=== PATIENT | female | born 1950 | race Caucasian/White ===

== ENCOUNTER → 2018-04-03 11:08 | Outpatient (POV) | payer OTHER, SELFPAY ==
[2018-04-03 11:33] VITALS: BP 114/49; PULSE 73; RESP 18; O2SAT 91
--- NOTE | 2018-04-03 11:55 | HMH.PMCON ---
Assessment and Plan (1) Degenerative disc disease Current visit: Yes Status: Resolved Qualifiers: Spinal region: lumbar Qualified Code(s): M51.36 - Other intervertebral disc degeneration, lumbar region Category: Medical - Assessment and plan all Dx Assessment and Plan for all problems:: We will decrease the patient's pump to an infusion of 2.3 mg a day. We will follow-up with her at her next intrathecal pain pump refill. Patient's been instructed to call the office if she has any issues prior to her next appointment. This note was dictated using voice recognition software and may contain errors or omissions HPI - Data of Consult Consult date: 04/03/18 Requesting Physician: Merced Julio APRN Primary Care Provider: Darshan Parmar - Consult Narrative Reason for consult: Management of intrathecal pain pump History of present illness: Ms. Erickson is a 67 year old female who presents today for consultation. Patient has been a patient in [facility] where we have been managing her intrathecal Dilaudid/bupivacaine pump. Patient's currently on an intrathecal dose of 2.4 mg a day of Dilaudid and 1.2 mg a day of bupivacaine. Patient had been decrease her medication out of her pump however she was unable to decrease of 20%. Patient rates her pain today a 6 out of 10. Patient is utilizing Voltaren gel to help with the pain. Patient is coming off of her Keppra along with her gabapentin. She is also decreasing her primidone patient would like to start decreasing her pain pump. Patient is asking if we would be able to put her on narcotics I discussed with her that we would talk to Dr. Yu about this however it is our policy not to do so. Would like a small decrease today. We will decrease her 4%. CC: Merced Julio APRN [facility] History I have reviewed the patient's past medical history: Yes Medical History: Reports:: Deep Vein Thrombosis Denies:: Cancer, Diabetes Mellitus Type 1, Diabetes Mellitus Type 2, MRSA Other Medical History: Reports: Arthritis, Fibromyalgia Laterality Cases: Left: Carpal Tunnel Release, Total Knee Replacement, Other Other Surgeries: Yes: Cholecystectomy, Other (RIGHT ULNAR NERVE RELEASE, NECK, PAIN PUMP) Amputation: No Fractures: No - *Social History Alcohol Intake: never Occupational Status: other - Psychiatric History Expresses thoughts of harming self/others: None Suicide Plan Description: No Plan Review of Systems - Review of Systems ROS General: no recent weight change, no fever, no sleep disturbances Respiratory: no cough, no shortness of air, no recurring pulmonary infections Cardiovascular/Peripheral Vascular: No chest pain, No palpitations, no edema, no shortness of breath. Gastrointestinal: no incontinence, normal bowel movements reported Genitourinary: no incontinence Musculoskeletal: Back pain Psychiatric: normal mood/ affect, Neurological: [denies weakness in extremities], [denies balance issues] Meds Home Medications Medication Instructions Recorded Confirmed Type Butalb/Acetaminophen/Caffeine 1 each PO BIDP PRN 04/03/18 04/03/18 History [Rchscg-[id number] [id number]] Diclofenac Sodium [Diclofenac Sod 2 gm TOPICAL TID 04/03/18 04/03/18 History 100gm Topical Gel] Gabapentin [Gabapentin 100mg Cap] 100 mg PO DAILY 04/03/18 04/03/18 History Iron Polysaccharide Complex 150 mg PO DAILY 04/03/18 04/03/18 History [Poly-Iron] Mirabegron [Myrbetriq] 25 mg PO DAILY 04/03/18 04/03/18 History Omeprazole [Omeprazole 40mg 40 mg PO DAILY 04/03/18 04/03/18 History Capsule] Primidone [Mysoline] 250 mg PO BID 04/03/18 04/03/18 History Promethazine HCl [Phenergan 25mg 25 mg PO DAILY PRN 04/03/18 04/03/18 History tab] diazePAM [Valium] 10 mg PO TID 04/03/18 04/03/18 History Allergies Allergy/AdvReac Type Severity Reaction Status Date / Time butorphanol [From Stadol] Allergy Verified 04/03/18 11:43 nalbuphine [From Nubain]
--- NOTE | 2018-04-03 12:02 | P.CONS_ITS ---
Assessment and Plan (1) Degenerative disc disease Current visit: Yes Status: Resolved Qualifiers: Spinal region: lumbar Qualified Code(s): M51.36 - Other intervertebral disc degeneration, lumbar region Category: Medical - Assessment and plan all Dx Assessment and Plan for all problems:: We will decrease the patient's pump to an infusion of 2.3 mg a day. We will follow-up with her at her next intrathecal pain pump refill. Patient's been instructed to call the office if she has any issues prior to her next appointment. This note was dictated using voice recognition software and may contain errors or omissions HPI - Data of Consult Consult date: 04/03/18 Requesting Physician: Merced Julio APRN Primary Care Provider: Darshan Parmar - Consult Narrative Reason for consult: Management of intrathecal pain pump History of present illness: Ms. Erickson is a 67 year old female who presents today for consultation. Patient has been a patient in [facility] where we have been managing her intrathecal Dilaudid/bupivacaine pump. Patient's currently on an intrathecal dose of 2.4 mg a day of Dilaudid and 1.2 mg a day of bupivacaine. Patient had been decrease her medication out of her pump however she was unable to decrease of 20%. Patient rates her pain today a 6 out of 10. Patient is utilizing Voltaren gel to help with the pain. Patient is coming off of her Keppra along with her ga bapentin. She is also decreasing her primidone patient would like to start decreasing her pain pump. Patient is asking if we would be able to put her on narcotics I discussed with her that we would talk to Dr. Yu about this however it is our policy not to do so. Would like a small decrease today. We will decrease her 4%. CC: Merced Julio APRN [facility] History I have reviewed the patient's past medical history: Yes Medical History: Reports:: Deep Vein Thrombosis Denies:: Cancer, Diabetes Mellitus Type 1, Diabetes Mellitus Type 2, MRSA Other Medical History: Reports: Arthritis, Fibromyalgia Laterality Cases: Left: Carpal Tunnel Release, Total Knee Replacement, Other Other Surgeries: Yes: Cholecystectomy, Other (RIGHT ULNAR NERVE RELEASE, NECK, PAIN PUMP) Amputation: No Fractures: No - *Social History Alcohol Intake: never Occupational Status: other - Psychiatric History Expresses thoughts of harming self/others: None Suicide Plan Description: No Plan Review of Systems - Review of Systems ROS General: no recent weight change, no fever, no sleep disturbances Respiratory: no cough, no shortness of air, no recurring pulmonary infections Cardiovascular/Peripheral Vascular: No chest pain, No palpitations, no edema, no shortness of breath. Gastrointestinal: no incontinence, normal bowel movements reported Genitourinary: no incontinence Musculoskeletal: Back pain Psychiatric: normal mood/ affect, Neurological: [denies weakness in extremities], [denies balance issues] Meds Home Medications Medication Instructions Recorded Confirmed Type Butalb/Acetaminophen/Caffeine 1 each PO BIDP PRN 04/03/18 04/03/18 History [[id number]-Iwyv 50-300-40] Diclofenac Sodium [Diclofenac Sod 2 gm TOPICAL TID 04/03/18 04/03/18 History 100gm Topical Gel] Gabapentin [Gabapentin 100mg Cap] 100 mg PO DAILY 04/03/18 04/03/18 History Iron Polysaccharide Complex 150 mg PO DAILY 04/03/18 04/03/18 History [Poly-Iron] Mirabegron [Myrbetr
== END ==
PROVIDERS: PCP Family Medicine; Visit Provider Clinical Nurse Specialist Family Health
DX: M51.36 Other intervertebral disc degeneration, lumbar region (principal)
CPT/HCPCS: 62368

== ENCOUNTER → 2018-05-16 09:03 | Outpatient (POV) | payer OTHER, SELFPAY ==
[2018-05-16 09:26] VITALS: BP 135/58; PULSE 70; RESP 18; O2SAT 98; BMI 22.8
--- NOTE | 2018-05-16 12:31 | P.CONS_ITS ---
[facility] Pain Management SOAP Note Subjective:: Patient is a pleasant 68-year-old white female who is very tearful today. Patient states she is in terrible pain mostly migraines and headaches. He is also having radiation into her left hand. Patient has been slowly decreasing her medication. Patient has been completely weaned off her Keppra and is now only on gabapentin 100 mg a day. She is also cutting back her Valium. Patient is on a intrathecal Dilaudid/bupivacaine pump going at 2.3 mg we have not made any adjustments to this recently. Patient would like to continue to keep cutting back on this in order to get off of the medication. Patient has some concerns in regards to insurance and financing in the future. ROS General: no recent weight change, no fever, no sleep disturbances Respiratory: no cough, no shortness of air, no recurring pulmonary infections Cardiovascular/Peripheral Vascular: No chest pain, No palpitations, no edema, no shortness of breath. Gastrointestinal: no incontinence, normal bowel movements reported Genitourinary: no incontinence Musculoskeletal: Headaches, back pain, neck pain Psychiatric: normal mood/ affect Neurological: [denies weakness in extremities], [denies balance issues] Objective:: Physical Exam General: Alert and oriented x3, no acute distress, pleasant and cooperative, [on room air] Lungs: Resps E/U, Symmetrical chest expansion, Eyes: PERRL Musculoskeletal: Flexion and extension of cervical spine somewhat guarded secondary to pain, deep tendon reflexes normal, strength in upper and lower extremities [5/5], [abnormal gait noted] Neurological: speech clear, regional guide equal, no gross sensory deficits Assessment:: Degenerative disc disease cervical spine with cervical radiculopathy, postlaminectomy syndrome, degenerative disc disease lumbar spine Plan:: Patient has had epidurals in the past. Patient states that she does not remember them being helpful. Patient and I discussed about our plan of care. We will not increase her pain pump backup. I believe that this will be unhe lpful to current pain symptoms. We will send her for an MRI to determine any changes in her neck pathology. We will also call in a Medrol Dosepak for the patient. If she does not get relief from this we will plan a C5-C6 cervical epidural for her. This note was dictated using voice recognition software and may contain errors or omissions
--- NOTE | 2018-05-24 15:22 | PC.PHONENOTE ---
Edwina Erickson called the office due to increased pain she was having. The patient were given the options by staff to make an appointment to come in to be evaluated, go to family doctor, or go to the emergency room. Pt went to family doctor. Dr. Darshan Parmar prescribed her Loratab ,1Q4H PRN with quantity 18.
== END ==
PROVIDERS: PCP Family Medicine; Visit Provider Clinical Nurse Specialist Family Health
DX: M50.10 Cervical disc disorder with radiculopathy, unspecified cervical region (principal); M96.1 Postlaminectomy syndrome, not elsewhere classified; M51.36 Other intervertebral disc degeneration, lumbar region
CPT/HCPCS: 62368; 99213

== ENCOUNTER → 2018-05-26 08:39 | Outpatient (POV) | payer OTHER, SELFPAY ==
[2018-05-26 09:01] VITALS: BP 123/47; PULSE 84; RESP 18; O2SAT 98; BMI 21.6
--- NOTE | 2018-05-26 09:56 | HMH.PMPROC ---
- Procedure Date: 05/26/18 Time: 09:56 Anesthesiologist:: Ladarius Yu MD Complications:: None Pre-procedure Diagnosis:: Degenerative disc disease of the cervical spine with postlaminectomy syndrome of the cervical spine and cervical radiculopathy symptoms with increasing neck pain Degenerative disease of lumbar spine with lumbar radiculopathy symptoms and previous compression fracture Post-procedure Diagnosis:: Same Indications for Procedure:: This patient is a pleasant 68-year-old white female who we are treating for neck pain with post lobectomy syndrome of the cervical spine and cervical radiculopathy symptoms along with low back pain with lumbar radiculopathy symptoms. She has increasing neck pain. Her pump was decreased previously as it was not giving her much relief. She had severe pain and ended up going to her primary care physician. Her primary care physician did give her 3 days worth of hydrocodone 5 mg. She is also on diazepam 10 mg 3 times a day however she says she is weaning herself off of this. We will continue to wean her pump however I will change her to flex dosing as she has benefited from boluses in the past. She got 0.25 mg bolus which gave her significant relief. We will give her 0.25 mg boluses every 4 hours with a low basal rate decreasing her intrathecal total daily dose to 1.9 mg/day of intrathecal Dilaudid/bupivacaine. She also has a MRI of her brain which indicated possible autoimmune disease. She is afraid she has lupus. We will send her to a senior software development engineer to be evaluated. We will also follow-up on MRI of the cervical spine. Procedure Details:: Adjustment of intrathecal pain pump Informed consent was obtained and the risk and benefits of the procedure was explained to the. Patient was taken to the procedure room. Pump was interrogated. Intrathecal Dilaudid/bupivacaine infusion was changed to flex dosing of 0.25 mg boluses every 4 hours with low basal rate with total daily dose of 1.97 mg/day of intrathecal Dilaudid/bupivacaine. Patient tolerated the procedure well with no complications. Plan and Disposition:: We will continue to wean her pump however I will change her to flex dosing as she has benefited from boluses in the past. She got 0.25 mg bolus which gave her significant relief. We will give her 0.25 mg boluses every 4 hours with a low basal rate decreasing her intrathecal total daily dose to 1.97 mg/day of intrathecal Dilaudid/bupivacaine. She also has a MRI of her brain which indicated possible autoimmune disease. She is afraid she has lupus. We will send her to a senior software development engineer to be evaluated. We will also follow-up on MRI of the cervical spine. We will also continue to monitor her Karsten. If she continues to receive diazepam at 10 mg 3 times a day we will further reduce her intrathecal infusion and wean her completely off. She needs to wean off of her diazepam in order for us to continue treating her with intrathecal narcotics. Also she does not need to get hydrocodone on top of her pump medication. We had a mitchel discussion about this violation of her contract.
== END ==
PROVIDERS: PCP Family Medicine; Visit Provider Anesthesiology
DX: M50.10 Cervical disc disorder with radiculopathy, unspecified cervical region (principal); M96.1 Postlaminectomy syndrome, not elsewhere classified; M51.16 Intervertebral disc disorders with radiculopathy, lumbar region; Z87.311 Personal history of (healed) other pathological fracture
CPT/HCPCS: 62368

== ENCOUNTER → 2018-06-19 13:40 | Outpatient (POV) | payer OTHER, SELFPAY ==
[2018-06-19 14:08] VITALS: BP 113/47; PULSE 74; RESP 18; O2SAT 98; BMI 21.4
--- NOTE | 2018-06-19 15:13 | HMH.PAINSOAP ---
[facility] Pain Management SOAP Note Subjective:: Patient is a pleasant 68-year-old white female who presents today to discuss her myriad of issues. Patient currently has an intrathecal pain pump that is being decreased due to other medication she is taking. She rates her pain a 9 out of 10. Patient states she is extremely tender over her bilateral occipital's. She is also having migraines along with bug-like sensation. I believe that an occipital nerve block would be beneficial for her. Patient is also taken a fall recently and has had extreme neck pain radiating down to her left arm and affecting the last 3 digits on her left hand. Patient is having some increased weakness in this area as well. I have some concerns in regards to her neck pathology. Patient has had surgery in the past I would like to determine that there has been no damage done to this area. We will send her for an MRI of her cervical spine. Patient also would like to discuss the flow [place] pain pump. I believe we need to get these procedures done prior to making this decision. ROS General: no recent weight change, no fever, no sleep disturbances Respiratory: no cough, no shortness of air, no recurring pulmonary infections Cardiovascular/Peripheral Vascular: No chest pain, No palpitations, no edema, no shortness of breath. Gastrointestinal: no incontinence, normal bowel movements reported Genitourinary: no incontinence Musculoskeletal: Neck pain, migraines Psychiatric: normal mood/ affect Neurological: Left arm weakness, [denies balance issues] Objective:: Physical Exam General: Alert and oriented x3, no acute distress, pleasant and cooperative, [on room air] Lungs: Resps E/U, Symmetrical chest expansion, Eyes: PERRL Musculoskeletal: Flexion and extension of cervical spine somewhat guarded secondary to pain, deep tendon reflexes normal, strength in upper and lower extremities [5/5], slightly antalgic gait noted Neurological: speech clear, machine feeder floorperson equal, no gross sensory deficits Assessment:: Occipital neuralgia, neck pain, postlaminectomy syndrome, arm pain Plan:: We will schedule MRI of the cervical spine to determine pathology. We will also set her up for occipital nerve blocks I believe that this would be beneficial for her. This note was dictated using voice recognition software and may contain errors or omissions
--- NOTE | 2018-06-19 15:18 | P.CONS_ITS ---
[facility] Pain Management SOAP Note Subjective:: Patient is a pleasant 68-year-old white female who presents today to discuss her myriad of issues. Patient currently has an intrathecal pain pump that is being decreased due to other medication she is taking. She rates her pain a 9 out of 10. Patient states she is extremely tender over her bilateral occipital's. She is also having migraines along with bug-like sensation. I believe that an occipital nerve block would be beneficial for her. Patient is also taken a fall recently and has had extreme neck pain radiating down to her left arm and affecting the last 3 digits on her left hand. Patient is having some increased weakness in this area as well. I have some concerns in regards to her neck pathology. Patient has had surgery in the past I would like to determine that there has been no damage done to this area. We will send her for an MRI of her cervical spine. Patient also would like to discuss the flow [place] pain pump. I believe we need to get these procedures done prior to making this decision. ROS General: no recent weight change, no fever, no sleep disturbances Respiratory: no cough, no shortness of air, no recurring pulmonary infections Cardiovascular/Peripheral Vascular: No chest pain, No palpitations, no edema, no shortness of breath. Gastrointestinal: no incontinence, normal bowel movements reported Genitourinary: no incontinence Musculoskeletal: Neck pain, migraines Psychiatric: normal mood/ affect Neurological: Left arm weakness, [denies balance issues] Objective:: Physical Exam General: Alert and oriented x3, no acute distress, pleasant and cooperative, [on room air] Lungs: Resps E/U, Symmetrical chest expansion, Eyes: PERRL Musculoskeletal: Flexion and extension of cervical spine somewhat guarded secondary to pain, deep tendon reflexes normal, strength in upper and lower extremities [5/5], slightly antalgic gait noted Neurological: speech clear, sample hand equal, no gross sensory deficits Assessment:: Occipital neuralgia, neck pain, postlaminectomy syndrome, arm pain Plan:: We will schedule MRI of the cervical spine to determine pathology. We will also set her up for occipital nerve blocks I believe that this would be beneficial for her. This note was dictated using voice recognition software and may contain errors or omissions
== END ==
PROVIDERS: PCP Family Medicine; Visit Provider Clinical Nurse Specialist Family Health
DX: M54.81 Occipital neuralgia (principal); M54.2 Cervicalgia; M96.1 Postlaminectomy syndrome, not elsewhere classified; M79.602 Pain in left arm
CPT/HCPCS: 99213

== ENCOUNTER → 2018-09-04 10:01 | Outpatient (POV) | payer OTHER, SELFPAY ==
[2018-09-04 10:38] VITALS: BP 122/55; PULSE 70; RESP 18; O2SAT 98; BMI 20.5
--- NOTE | 2018-09-04 11:27 | P.CONS_ITS ---
[facility] Pain Management SOAP Note Subjective:: Patient is a pleasant 68-year-old white female who presents today for follow-up after occipital nerve block. Patient states she did not have any relief of her symptoms and actually got worse. Since her last visit she is been seen by Dr. Michel who stated that if he did surgery she potentially could be worse and he was not interested in moving forward with that. Patient states most of her pain is in her head she states it is heavy feeling at all times. She rates her pain an 8 out of 10. Patient wants to discuss gabapentin today. Patient had been on gabapentin in the past however she is recently weaned herself off. We discussed starting her back on a low dose and she is interested in this. ROS General: no recent weight change, no fever, no sleep disturbances Respiratory: no cough, no shortness of air, no recurring pulmonary infections Cardiovascular/Peripheral Vascular: No chest pain, No palpitations, no edema, no shortness of breath. Gastrointestinal: no incontinence, normal bowel movements reported Genitourinary: no incontinence Musculoskeletal: Back pain, neck pain, headache Psychiatric: normal mood/ affect Neurological: [denies weakness in extremities], [denies balance issues] Objective:: Physical Exam General: Alert and oriented x3, no acute distress, pleasant and cooperative, [on room air] Lungs: Resps E/U, Symmetrical chest expansion, Eyes: PERRL Musculoskeletal: Flexion and extension of cervical spine somewhat guarded seco ndary to pain, deep tendon reflexes normal, strength in upper and lower extremities [5/5], slightly antalgic gait noted Neurological: speech clear, rubber production machine operator equal, no gross sensory deficits Assessment:: Degenerative disc disease cervical spine with cervical radiculopathy, occipital neuralgia, headaches, degenerative disc disease lumbar spine with lumbar radiculopathy Plan:: We will start the patient on gabapentin 100 mg 1 p.o. 3 times daily. I will follow-up with her in 3 months and reassess her symptoms at that time. Patient's been instructed to call the office if she has any issues prior to her next appointment. Dr. Yu has reviewed this note and agrees with this plan of care. This note was dictated using voice recognition software and may contain errors or omissions
== END ==
PROVIDERS: PCP Family Medicine; Visit Provider Clinical Nurse Specialist Family Health
DX: M50.10 Cervical disc disorder with radiculopathy, unspecified cervical region (principal); M54.81 Occipital neuralgia; M51.16 Intervertebral disc disorders with radiculopathy, lumbar region
CPT/HCPCS: 99213

== ENCOUNTER → 2019-11-18 14:37 | Outpatient (CLI) | payer OTHER, SELFPAY ==
[2019-11-19 17:22] LABS: Covid-19 Nasal PCR Sendout Lex Not Detected
--- NOTE | 2019-11-19 17:26 | PC.NURSE ---
Notified PM route sales manager of negative covid results.
--- NOTE | 2019-11-19 17:34 | PC.NURSE ---
left message for patient to return call for COVID results
== END ==
PROVIDERS: PCP Family Medicine; Visit Provider Anesthesiology
DX: Z03.818 Encounter for observation for suspected exposure to other biological agents ruled out (principal)
CPT/HCPCS: U0003

== ENCOUNTER 2019-11-20 13:44 | Day surgery (SDC) | payer OTHER, SELFPAY ==
[2019-11-20 13:53] VITALS: BP 119/51; PULSE 66; RESP 18; O2SAT 98; BMI 21.2
[2019-11-20 14:19] VITALS: BP 135/85; PULSE 85; RESP 18
[2019-11-20 14:23] VITALS: BP 112/65; BP 142/85; PULSE 61; PULSE 84; RESP 18; RESP 19; O2SAT 98; O2SAT 99
--- NOTE | 2019-11-20 14:29 | P.PCN_ITS ---
- Procedure Date: 11/20/19 Time: 14:29 Anesthesiologist:: Merced Julio APRN Complications:: None Pre-procedure Diagnosis:: Degenerative disc disease lumbar spine with lumbar radiculopathy along with degenerative disc disease cervical spine with cervical radiculopathy Post-procedure Diagnosis:: Same Indications for Procedure:: Patient is a pleasant 69-year-old white female who presents today tearful. Patient states that she is in excruciating pain. Rating her pain today a 10 out of 10. Patient states that nothing makes it better. Patient states that she is unsure of what is happening because the pain is continually getting worse regardless of different medications, intrathecal pain pump adjustments. We are decreasing her pump. Patient states she noted a significant pain increase when we decreased her from 2.25 mg to food 2.2 mg of Dilaudid a day. [facility] #[id number] reviewed. Patient is on Fioricet, gabapentin, diazepam, Dilaudid with her pain pump. I do have some concerns in regards to potential oversedation. Patient is receiving these medications from her primary care physician and her neurologist. I do believe weaning her off her pump as low as possible will be beneficial. Patient does not have any recent MRIs and her cervical spine or her lumbar spine. We will send her. I do believe that this might be appropriate in the sense that she is having extreme pain, frequent falls, decreased range of motion lower extremities and upper extremities. She has notable muscle rigidity on her right side of her cervical spine. Patient has had this for over 6 months. It has not been alleviated with any kind of stretching therapies, medication therapies. Physical Exam General: Alert and oriented x3, no acute distress, pleasant and cooperative, [on room air] Lungs: Resps E/U, Symmetrical chest expansion, Eyes: PERRL Musculoskeletal: Flexion and extension of cervical and lumbar spine somewhat guarded secondary to pain, deep tendon reflexes normal, strength in upper and lower extremities [5/5], [abnormal gait noted] Neurological: speech clear, storage center manager equal, no gross sensory deficits Procedure Details:: Informed consent was obtained and the risk and benefits of the procedure were explained to the patient. The patient was taken to the procedure room where noninvasive monitoring was placed including noninvasive blood pressure cuff and pulse oximeter. Patient's pump was interrogated. The area over the pump was cleansed with chlorhexidine as a cleansing solution. In sterile fashion the pump was accessed with a 22-gauge needle. Approximately 3 mL mL's were removed of the pump solution and discarded appropriately. The pump was then refilled with 20 mL's of Dilaudid 10 mg/mL. The needle was withdrawn and a bandage was placed over the puncture site. The infusion rate was reprogrammed to crease to 2.15 mg/day. The patient tolerated the procedure well. Plan and Disposition:: We will send the patient for cervical and lumbar MRI to determine pathology. She may warrant a neurosurgical consultation. I will follow-up with her after this reassess her symptoms at that time she has been instructed to call the office if she has any issues prior to her next appointment. Dr. Yu has reviewed this note and agrees with this plan of care. This note was dictated using voice recognition software and may contain errors or omissions
== END 2019-11-20 14:32 | disposition home or self-care (01) ==
LOC: SC.PAINP 13:46
PROVIDERS: PCP Family Medicine; Visit Provider Clinical Nurse Specialist Family Health
DX: M51.16 Intervertebral disc disorders with radiculopathy, lumbar region (principal); M50.10 Cervical disc disorder with radiculopathy, unspecified cervical region
CPT/HCPCS: 62370

== ENCOUNTER → 2019-12-14 13:28 | Outpatient (CLI) | payer OTHER, SELFPAY ==
--- NOTE | 2019-12-14 13:36 | XR_ITS ---
PROCEDURE: XR KUB CLINICAL INDICATION: PAIN PUMP PLACEMENT, check position prior to schedule MRI scan COMPARISON: No exams were available for comparison FINDINGS: Gas pattern-The bowel gas pattern is unremarkable. No obvious obstruction. Calcifications-No abnormal calcifications are evident. No obvious renal or ureteral calculi. Bones-No acute bony anomalies evident. The pain pump projects over the superior aspect of the right iliac crest and appears to be in proper placement in horizontal plane. There is an IVC filter in place. There is an arterial stent extending from the aortic bifurcation to the left superficial femoral artery origin. There surgical clips right upper quadrant probably from previous cholecystectomy. IMPRESSION: Placement of right-sided pain pump as indicated Dictated by: Dr. Richar Alvarez MD 12/14/2019 14:[address] Richar Alvarez MD in [place] 12/14/2019 14:02
--- NOTE | 2019-12-14 14:28 | MR_ITS ---
PROCEDURE: MR CERVICAL SPINE WO CON CLINICAL INDICATION: NECK PAIN Neck pain, headache, prior neck surgery COMPARISON: No exams were available for comparison TECHNIQUE: Standard multiplanar multiecho sequences are performed without contrast. 3-D MIP and myelographic images are also rendered and reviewed FINDINGS: There are no previous exams available for comparison. The craniocervical junction has an unremarkable appearance. There is normal alignment. C2-C3: Unremarkable. C3-C4: Degenerative disc disease with mild bulging disc. There is a prominent left uncovertebral disc osteophyte complex with resultant left-sided foraminal narrowing C4-C5: Degenerate disc disease with mild bulging disc and endplate hypertrophic change. There is 3 mm retrolisthesis of C4. There is mild bilateral foraminal and lateral recess narrowing with borderline canal stenosis. C5-C6: There is fusion of the vertebral body at C5-C6 C6-C7: Degenerative disc disease with bulging disc and small central disc protrusion. C7-T1: Unremarkable. IMPRESSION: 1. C3-C4: Degenerative disc disease with mild bulging disc. There is a prominent left uncovertebral disc osteophyte complex with resultant left-sided foraminal narrowing 2. C4-C5: Degenerate disc disease with mild bulging disc and endplate hypertrophic change. There is 3 mm retrolisthesis of C4. There is mild bilateral foraminal and lateral recess narrowing with borderline canal stenosis. 3. C5-C6: There is fusion of the vertebral body at C5-C6 4. C6-C7: Degenerative disc disease with bulging disc and small central disc protrusion. Dictated by: Paul Urias MD 12/15/2019 09:51 Electronically signed by Paul Urias MD in [place] 12/15/2019 09:51
--- NOTE | 2019-12-14 14:28 | MR_ITS ---
PROCEDURE: MR LUMBAR SPINE WO CON CLINICAL INDICATION: BACK PAIN Low back pain radiating into the hips COMPARISON: MR CERVICAL SPINE WO CON from 12/14/2019 TECHNIQUE: Standard multiplanar multiecho sequences are performed without contrast. 3-D MIP and myelographic images are also rendered and reviewed FINDINGS: There is straightening of the lumbar lordosis. The spinal cord ends at the L1 level. T12-L1: Unremarkable. There is a T1 and T2 hyperintensity area involving the right aspect of the T12 vertebral body consistent with lipoma/hemangioma. Similar areas noted involving the right aspect of L1 vertebral body. L1-L2: Mild degenerative disc disease. There is chronic mild wedging of L2 with loss of height anteriorly of 20 percent. There is minimal bulging disc at L1-L2 L2-L3: Degenerative disc disease with bulging disc. There is a small central/left paracentral disc protrusion/herniation causing left lateral recess narrowing. There is mild facet ligamentum hypertrophy at this level as well with mild bilateral foraminal narrowing. L3-L4: Mild concentric bulging disc with facet ligamentum hypertrophy with mild bilateral lateral recess narrowing right greater than left and mild bilateral foraminal narrowing. L4-5: Mild degenerative disc disease with bulging disc with facet ligamentum hypertrophy causing moderate bilateral foraminal narrowing and bilateral lateral recess narrowing. L5-S1: Degenerate disc disease with mild bulging disc with facet ligamentum hypertrophy with moderate bilateral foraminal narrowing. Incidental note is made dilated common bile duct as well as pancreatic duct dilatation in the pancreatic head. Consider CT of the abdomen without and with contrast with pancreatic protocol. There is also mild right hydronephrosis, mild dilatation of the left renal collecting system, and a 3.5 cm right renal cyst IMPRESSION: 1. Multilevel lumbar spondylosis with degenerative disc disease, bulging discs along with facet ligamentum hypertrophy with lateral recess and foraminal narrowing. Please see above for detailed description at each level. 2. Chronic wedging of L2. Small central/left paracentral disc protrusion/herniation noted at L2-L3 3. Dilated common bile duct and pancreatic duct. Consider CT or MRI of the abdomen with pancreatic protocol 4. Mild right hydronephrosis Dictated by: Paul Urias MD 12/15/2019 09:45 Electronically signed by Paul Urias MD in [place] 12/15/2019 09:45
== END ==
PROVIDERS: PCP Family Medicine; Visit Provider Anesthesiology
DX: M54.2 Cervicalgia (principal); M54.5 Low back pain
CPT/HCPCS: 72141; 72148; 74018; 76376

== ENCOUNTER 2020-01-28 15:01 | Day surgery (SDC) | payer OTHER, SELFPAY ==
[2020-01-28 15:06] VITALS: BP 115/40; PULSE 79; RESP 18; TEMP 36.7; O2SAT 95; BMI 22.2
[2020-01-28 15:12] VITALS: BP 140/88; PULSE 85; RESP 18; O2SAT 98
[2020-01-28 15:24] VITALS: BP 145/85; BP 152/88; PULSE 85; RESP 18; O2SAT 98
--- NOTE | 2020-01-28 15:30 | P.PCN_ITS ---
- Procedure Date: 01/28/20 Time: 15:30 Anesthesiologist:: Merced Julio APRN Complications:: None Pre-procedure Diagnosis:: Disc disease lumbar spine lumbar radiculopathy degenerative disc disease cervical spine with cervical radiculopathy Post-procedure Diagnosis:: Same Indications for Procedure:: Patient is a 69-year-old white female who presents today for intrathecal pain pump refill and reprogram. She rates her pain a 9 out of 10. She states that her pain is excruciating. She had a cervical and lumbar MRI showing degenerative changes and osteophytes and bulging disks. Patient is on Lovenox and blood thinner and unable to come off of it at this time. Patient and I discussed going to a surgeon for consultation. She like to move forward with this. She is also concerned in regards to the pancreatic duct dilation noted on her MRI incidentally. Patient is already under the care of a president consumer [employer] company. [employer] is aware of this. Patient is on Fioricet gabapentin diazepam and Dilaudid with her pain pump. I do have concerns in regards to potential oversedation. Patient has been decreasing her intrathecal therapy. Patient receives these medications from both her primary care physician and her neurologist. I do believe weaning off her pump to as low as possible with some advocacy will be beneficial for her. Physical Exam General: Alert and oriented x3, no acute distress, pleasant and cooperative, [on room air] Lungs: Resps E/U, Symmetrical chest expansion, Eyes: PERRL Musculoskeletal: Flexion and extension of lumbar and cervical spine somewhat guarded secondary to pain, deep tendon reflexes normal, strength in upper and lower extremities [5/5], [abnormal gait noted] Neurological: speech clear, station engineer chief equal, no gross sensory deficits Procedure Details:: Informed consent was obtained and the risk and benefits of the procedure were explained to the patient. The patient was taken to the procedure room where noninvasive monitoring was placed including noninvasive blood pressure cuff and pulse oximeter. Patient's pump was interrogated. The area over the pump was cleansed with chlorhexidine as a cleansing solution. In sterile fashion the pump was accessed with a 22-gauge needle. Approximately 4 mL's were removed of the pump solution and discarded appropriately. The pump was then refilled with 20 mL's of Dilaudid 10 mg/mL. The needle was withdrawn and a bandage was placed over the puncture site. The infusion rate was reprogrammed to continue 2.1 mg/day. The patient tolerated the procedure well. Plan and Disposition:: We will send the patient to neurosurgeon in regards to her recent MRIs. She is to finish following up with her president consumer electronics company in regards to her pancreatic duct dilation. We will continue to wean her off of her pain pump. Patient is instructed call the office if she has any issues prior to her next appointment. Dr. Yu has reviewed this note and agrees with this plan of care. This note was dictated using voice recognition software and may contain errors or omissions
[2020-01-28 15:49] VITALS: BP 115/45; PULSE 79; RESP 18; O2SAT 95
== END 2020-01-28 15:50 | disposition home or self-care (01) ==
LOC: SC.PAINP 15:01
PROVIDERS: PCP Family Medicine; Visit Provider Clinical Nurse Specialist Family Health
DX: M51.16 Intervertebral disc disorders with radiculopathy, lumbar region (principal); M50.10 Cervical disc disorder with radiculopathy, unspecified cervical region
CPT/HCPCS: 95991

== ENCOUNTER → 2020-02-18 08:46 | Outpatient (CLI) | payer OTHER, SELFPAY ==
[2020-02-18 09:14] LABS: Blood Urea Nitrogen 17 mg/dl (7-17); Estimated Glomerular Filt Rate 71 ml/min (>60); GFR (African American) 86 ML/MIN (>60)
--- NOTE | 2020-02-18 09:19 | MR_ITS ---
PROCEDURE: MR ABDOMEN WO/W CON CLINICAL INDICATION: Dilated bile ducts on previous the ABNORMAL MRI Abnormal MRI. Nausea. Right-sided upper abdomen pain. Hx liver cysts. Liver and pain creased cancer run in family. 13ml prohance given. LoT: [id number] exp: Jan 2022 COMPARISON: MR MR LUMBAR SPINE WO CON from 12/14/2019 CR XR ABDOMEN MIN 2V from 02/18/2020 TECHNIQUE: Routine multiplanar multi echo sequences are performed without and with gadolinium enhancement. FINDINGS: There are bilateral breast implants present. There has been a prior cholecystectomy. Artifact is present in the right mid and lower abdominal region from the pain pump obscuring much of the lower portion of the liver on the axial images. There are multiple hepatic cysts present. There is a 2.8 x 2.8 cm lobulated lesion in the left hepatic lobe centrally which demonstrates increased T2 signal. This is isointense on the T1 images with decreased T1 signal anteriorly. This is not as hypointense as the remaining cyst in the liver on the T1 weighted images. This does demonstrate a thin peripheral capsule on the post enhanced delayed images. There are other lesions of the liver which are hypointense on T1 and hyperintense on T2 without enhancement measuring up to 2 cm consistent with simple cyst. There has been a prior cholecystectomy. There is mild dilatation of the common bile duct at 12 mm. The pancreatic duct is also prominent at 6 mm. The the the pancreatic head is somewhat obscured by the overlying artifact from the pain pump. The distal aspect of the common bile duct and pancreatic duct are not well delineated on the axial images due to the overlying artifact. There is prominence of the right renal pelvis with mild right hydronephrosis and there is a 3.6 cm cyst along the lower pole of the right kidney. IMPRESSION: 1. Artifact obscures the mid and lower abdomen on the axial images from the overlying pain pump. 2. Multiple hepatic cysts with a complex 2.8 cm in the left hepatic lobe with not purely cystic properties. A complex cyst is a consideration. Follow-up is suggested. There is a thin enhancing rim. This does not have typical appearance for a hemangioma. 3. Dilated common bile duct and pancreatic duct/double duct sign. The ampullary region is obscured on the axial images from the overlying artifact. The cannot exclude an ampullary lesion or stricture. CT of the pancreas may provide further evaluation and should not be met with artifact as is on this exam if clinically desired. Please correlate with patient's laboratory values and clinical presentation. GI consult may provide further evaluation as well. Follow-up suggested. 4. Mild right hydronephrosis which may be due to UPJ stenosis Dictated b Paul Urias MD 02/25/2020 08:44 Paul Urias MD in [place] 02/25/2020 08:44
--- NOTE | 2020-02-18 10:48 | XR_ITS ---
PROCEDURE: XR ABDOMEN MIN 2V CLINICAL INDICATION: EVALUATE POSITION OF PAIN PUMP FOR MRI COMPARISON: MR LUMBAR SPINE WO CON from 12/14/2019 FINDINGS: Pain pump present for noted in the right lower quadrant and is oriented parallel with the long axis of the body. This should be satisfactory for MRI. Also noted is an IVC filter, surgical clips in the right upper quadrant, left iliac artery stent. There is mild wedging the L2 vertebral body with degenerative changes in the lumbar spine. IMPRESSION: The pain pump is in satisfactory position for performance an MRI. Dictated by: Paul Urias MD 02/18/2020 11:41 Electronically signed by Paul Urias MD in [place] 02/18/2020 11:41
== END ==
PROVIDERS: PCP Family Medicine; Visit Provider Nurse Practitioner Acute Care
DX: K83.8 Other specified diseases of biliary tract (principal); R93.89 Abnormal findings on diagnostic imaging of other specified body structures; K86.89 Other specified diseases of pancreas; Z80.0 Family history of malignant neoplasm of digestive organs; K76.89 Other specified diseases of liver
CPT/HCPCS: 36415; 74019; 74183; 76376; 82565; 84520; A9576

== ENCOUNTER → 2020-02-27 13:43 | Outpatient (CLI) | payer OTHER, SELFPAY ==
--- NOTE | 2020-02-27 13:53 | US_ITS ---
PROCEDURE: US THYROID CLINICAL INDICATION: THYROID NODULE COMPARISON: No exams were available for comparison FINDINGS: Right lobe: 3.7 x 1.1 x 1.6 cm. Small nodules are present on the right. The largest nodule is 6 x 3 mm slightly hypoechoic solid-appearing with well-defined margins wider than tall without calcifications. Left lobe: 3.9 x 1.2 x 1.3 cm. There is a solid 9 x 4 mm nodule slightly hypoechoic wider than tall well-circumscribed without calcifications. Small cyst is present in the mid polar region at 3 mm. Isthmus: Unremarkable Additional findings: IMPRESSION: Bilateral small solid thyroid nodules less than 1.5 cm, T rads 4, less than 1.5 cm. Recommend six-month follow-up Dictated b Paul Urias MD 02/27/2020 15:51 Paul Urias MD in [place] 02/27/2020 15:51
== END ==
PROVIDERS: PCP Family Medicine; Visit Provider Family Medicine
DX: E04.1 Nontoxic single thyroid nodule (principal)
CPT/HCPCS: 76536

== ENCOUNTER 2020-04-11 10:26 | Day surgery (SDC) | payer OTHER, SELFPAY ==
[2020-04-11 11:48] VITALS: BP 115/52; PULSE 63; RESP 17; TEMP 36.1; O2SAT 97; BMI 22.3
[2020-04-11 12:14] VITALS: BP 135/74; PULSE 85; RESP 18; O2SAT 98
--- NOTE | 2020-04-11 12:18 | HMH.PMPROC ---
- Procedure Date: 04/11/20 Time: 12:18 Anesthesiologist:: Ladarius Yu MD Complications:: None Pre-procedure Diagnosis:: Degenerative disc disease of the cervical spine with cervical radiculopathy symptoms. Degenerative disc disease of lumbar spine with lumbar radiculopathy symptoms. Post-procedure Diagnosis:: Same Indications for Procedure:: This patient is a pleasant 69-year-old white female who we are treating for neck pain low back pain with radicular symptoms. MRI does show significant degenerative changes with osteophytes and bulging disc. She is currently under the care of Dr. Scott she is currently on diazepam 10 mg 1-2 times daily along with Fioricet. She is also on a intrathecal Dilaudid pain pump. She currently going at 2.1 mg/day. She is having some increasing pain. She is awaiting referral to a neurosurgeon. Karsten and urine drug screen are all appropriate Karsten [id number]. We will refill her pump today. She is asking for an increase. We will do a slight increase to 2.5 mg/day. Again I have counseled her on issues with overmedication especially with her being on Fioricet and diazepam. Procedure Details:: Pain pump refill informed consent was obtained and the risks and benefits of the procedure was explained to the patient. The patient was taken to the procedure room. The pump was interrogated. The area over the pump was prepped using ChloraPrep. The pump was accessed with a 22-gauge needle. Approximately 4 mL's of the intrathecal solution was withdrawn and discarded. The pump was then refilled with 20 mL's of intrathecal Dilaudid 10 mg per ml. The pump was interrogated and the infusion was increased to 2.5 mg/day. The patient tolerated the procedure well with no complication. Plan and Disposition:: We will have her see a neurosurgeon to see if there is any possibility of surgical intervention. She is on blood thinners so she is not able to come off her blood thinners for any injections to her spine. We will follow-up with her in 2 weeks after she sees a neurosurgeon
[2020-04-11 12:19] VITALS: BP 145/77; PULSE 89; RESP 18; O2SAT 99
[2020-04-11 12:35] VITALS: BP 117/51; PULSE 58; RESP 20; O2SAT 97
== END 2020-04-11 12:36 | disposition home or self-care (01) ==
LOC: SC.PAINP 10:29
PROVIDERS: PCP Family Medicine; Visit Provider Anesthesiology
DX: M50.10 Cervical disc disorder with radiculopathy, unspecified cervical region (principal); M51.16 Intervertebral disc disorders with radiculopathy, lumbar region; J45.909 Unspecified asthma, uncomplicated; Z87.39 Personal history of other diseases of the musculoskeletal system and connective tissue; Z88.1 Allergy status to other antibiotic agents; Z88.2 Allergy status to sulfonamides; Z88.8 Allergy status to other drugs, medicaments and biological substances; Z79.82 Long term (current) use of aspirin
CPT/HCPCS: 62370

== ENCOUNTER → 2020-04-15 10:37 | Outpatient (CLI) | payer OTHER, SELFPAY ==
--- NOTE | 2020-04-15 10:50 | MR_ITS ---
PROCEDURE: MR HEAD/BRAIN WO CON CLINICAL INDICATION: ALTERED MENTAL STATUS HX SEVERE HEADACHE GETTING WORSE. FAMILY HX OF DEMENTIA AND ALZHEIMERS. COMPLAINS OF BILATERAL HAND NUMBNESS. COMPARISON: No exams were available for comparison TECHNIQUE: Routine multiplanar multi echo sequences are performed without gadolinium enhancement. FINDINGS: No midline shift, mass effect, intracranial hemorrhage, or hydrocephalus. The cerebellopontine angles, cerebellum, and brainstem have an unremarkable appearance. There is mild generalized atrophy. Scattered periventricular and subcortical T2 white matter hyperintensity is present consistent with ischemic gliotic change from microvascular disease. The pituitary, optic chiasm, corpus callosum, and craniocervical junction have an unremarkable appearance. No mastoid effusion. There is mild mucosal thickening of the ethmoid sinuses. IMPRESSION: 1. No acute intracranial findings. 2. Scattered periventricular and subcortical T2 white matter hyperintensity which may be due to ischemic gliotic change from microvascular disease. Differential diagnosis includes vasculopathy/migraine headache and demyelinating process. Please correlate with clinical findings. Dictated by: Paul Urias MD 04/16/2020 11:50 Paul Urias MD in [place] 04/16/2020 11:50
--- NOTE | 2020-04-15 10:51 | XR_ITS ---
PROCEDURE: XR ABDOMEN MIN 2V CLINICAL INDICATION: EVALUATE POSITION OF PAIN PUMP COMPARISON: No exams were available for comparison FINDINGS: There is a pain pump in the right lower quadrant. The position is slightly oblique but is not perpendicular to the long axis of the body and would not preclude performing an MRI. Left iliac artery stent and IVC filter is present. The clips are present in the right upper quadrant. IMPRESSION: Pain pump in the right lower quadrant as described above Dictated by: Paul Urias MD 04/15/2020 12:19 Paul Urias MD in [place] 04/15/2020 12:19
== END ==
PROVIDERS: PCP Family Medicine; Visit Provider Psychiatry & Neurology Neurology
DX: R41.82 Altered mental status, unspecified (principal)
CPT/HCPCS: 70551; 74019

== ENCOUNTER 2020-06-26 07:51 | Day surgery (SDC) | payer OTHER, SELFPAY ==
--- NOTE | 2020-06-26 08:55 | HMH.PMPROC ---
- Procedure Date: 06/26/20 Time: 08:55 Anesthesiologist:: Merced Julio APRN Complications:: None Pre-procedure Diagnosis:: Degenerative disc disease cervical spine cervical radiculopathy symptoms, postlaminectomy cervical spine, degenerative disc disease lumbar spine lumbar radiculopathy symptoms Post-procedure Diagnosis:: Same Indications for Procedure:: Patient is a pleasant 70-year-old white female who presents today for intrathecal pain pump refill and reprogram. Patient currently on an intrathecal Dilaudid pump going at 2.5 mg/day. She rates her pain an 8 out of 10. She denies side effects to her medication. [facility] #[id number] reviewed and appropriate. Patient states that she has been off her diazepam and her Phenergan for 2 months. We will not be making any changes today. Patient has not seen a neurosurgeon as of yet. Patient is following up with her neurologist. Procedure Details:: Informed consent was obtained and the risk and benefits of the procedure were explained to the patient. The patient was taken to the procedure room where noninvasive monitoring was placed including noninvasive blood pressure cuff and pulse oximeter. Patient's pump was interrogated. The area over the pump was cleansed with chlorhexidine as a cleansing solution. In sterile fashion the pump was accessed with a 22-gauge needle. Approximately 1.5 mL's were removed of the pump solution and discarded appropriately. The pump was then refilled with 20 mL's of Dilaudid 10 mg/mL. The needle was withdrawn and a bandage was placed over the puncture site. The infusion rate was reprogrammed to continue at 2.5 mg/day. The patient tolerated the procedure well. Plan and Disposition:: We did send her to a neurosurgeon however she states that she remembered she did not like that And did not go to her appointment. Patient did not contact our office in regard to this. We will send her to a different neurosurgeon. Patient's been instructed to call the office if she has any issues prior to her next appointment. Dr. Yu has reviewed this note and agrees with this plan of care. This note was dictated using voice recognition software and may contain errors or omissions
[2020-06-26 11:56] VITALS: BP 123/74; BP 128/74; BP 128/78; PULSE 74; PULSE 79; RESP 18; TEMP 36.6; O2SAT 100; O2SAT 98; BMI 22.5
== END 2020-06-26 09:00 | disposition home or self-care (01) ==
LOC: SC.PAINP 07:52
PROVIDERS: PCP Family Medicine; Visit Provider Clinical Nurse Specialist Family Health
DX: M50.10 Cervical disc disorder with radiculopathy, unspecified cervical region (principal); M96.1 Postlaminectomy syndrome, not elsewhere classified; M51.16 Intervertebral disc disorders with radiculopathy, lumbar region
CPT/HCPCS: 95991

== ENCOUNTER → 2020-07-07 11:21 | Outpatient (POV) | payer OTHER, SELFPAY ==
[2020-07-07 11:52] VITALS: BP 133/74; PULSE 71; RESP 18; O2SAT 98; BMI 22.2
--- NOTE | 2020-07-07 12:22 | P.PCN_ITS ---
- Procedure Date: 07/07/20 Time: 12:22 Anesthesiologist:: Merced Julio APRN Complications:: None Pre-procedure Diagnosis:: Degenerative disc disease lumbar spine with lumbar radiculopathy, degenerative disc disease cervical spine with cervical radiculopathy and postlaminectomy cervical spine Post-procedure Diagnosis:: Same Indications for Procedure:: Patient is a 70-year-old white female who presents today for intrathecal pain pump adjustment with quite a few concerns. Patient states that she feels like her pump is giving her more medication. She states that she has had in hospital twice for the inability to wake up. Patient did not notify us of her emergency room visits nor her stays at the hospital. Patient states that her pain is a 5 out of 10 today. Patient is on an intrathecal Dilaudid infusion of 1.8 mg of Dilaudid a day. She still has 3 years left on her LIZBETH. Patient has had no reservoir discrepancies. Patient was on diazepam, Fioricet, gabapentin. Christina ent's been educated on the potential reaction of these medications. She states she is no longer taking any of these. However she did fill her last prescription 6 days ago. Patient is having memory issues. She was sent to Dr. Ford after seeing Dr. Nash however she stated she did not want to go to this physician. She did not notify our office at her right last refill she stated she went to go see Dr. Michel. According to Dr. Michel office she was seen less than a year ago. Patient does not remember this visit. I have some concerns about overmedication myself. We will decrease her by 50% today. Procedure Details:: Informed consent was obtained and the risk and benefits of the procedure were explained to the patient. The patient was taken to the procedure room where noninvasive monitoring was placed including noninvasive blood pressure cuff and pulse oximeter. Patient's pump was interrogated and reprogrammed. The infusion rate was decreased at 1 mg of Dilaudid a day. The patient tolerated the procedure well. Plan and Disposition:: We will set the patient up for catheter dye study to see if there is any issues with her catheter. If patient continues to have issues we may choose to replace her pump. Patient states that she is scared to go to sleep and she is worried about having the pump in general. We may have to switch her to a nonnarcotic medication. I will follow-up with her after her catheter dye study reassess her at that time. Dr. Yu has reviewed this note and agrees with this plan of care. This note was dictated using voice recognition software and may contain errors or omissions
== END ==
PROVIDERS: PCP Family Medicine; Visit Provider Clinical Nurse Specialist Family Health
DX: M51.16 Intervertebral disc disorders with radiculopathy, lumbar region (principal); M50.10 Cervical disc disorder with radiculopathy, unspecified cervical region; M96.1 Postlaminectomy syndrome, not elsewhere classified
CPT/HCPCS: 62368

== ENCOUNTER 2020-07-16 13:11 | Day surgery (SDC) | payer OTHER, SELFPAY ==
[2020-07-16 13:16] VITALS: BP 122/53; PULSE 70; RESP 18; TEMP 36.6; O2SAT 98; BMI 23.0
[2020-07-16 14:15] VITALS: BP 133/78; PULSE 74; RESP 18
[2020-07-16 14:16] VITALS: BP 135/78; PULSE 88; RESP 18; O2SAT 99
[2020-07-16 14:36] VITALS: BP 113/60; PULSE 69; RESP 18; O2SAT 98
--- NOTE | 2020-07-16 14:42 | HMH.PMPROC ---
- Procedure Date: 07/16/20 Time: 14:42 Anesthesiologist:: Ladarius Yu MD Complications:: None Pre-procedure Diagnosis:: Degenerative disc disease of lumbar spine with lumbar radiculopathy symptoms Post-procedure Diagnosis:: Same Indications for Procedure:: Patient is a pleasant 70-year-old white female who we have been treating for low back pain with lumbar radiculopathy symptoms. She has noticed some episodes where she is felt overmedicated. Her pump was decreased to 1 mg/day of intrathecal Dilaudid/bupivacaine. We will do an intrathecal catheter dye study to assess patency and proper placement of her intrathecal catheter today. We will also make adjustments to her intrathecal infusion as needed. Her Karsten and urine drug screen are all appropriate Karsten [id number]. She has been off of her diazepam since March. Procedure Details:: Intrathecal catheter dye study and pump study Informed consent was obtained the risk and benefits of the procedure were explained to the patient. Patient was taken to the procedure room the area over the pump was prepped using ChloraPrep. The side-port of the pump was accessed with a 25-gauge needle. We were able to freely withdraw clear CSF and medication from the intrathecal catheter. We did inject dye and good spread was seen throughout the intrathecal space. The tip of the catheter was at the T9 vertebral body. We then did access the pump reservoir. Expected volume was 17 mL. We were able to withdraw 16.5 mL which was an appropriate amount. The pump appeared to be functioning appropriately. The catheter was in proper position and patent. The pump was interrogated and we decided to decrease her intrathecal Dilaudid/bupivacaine infusion to 0.5 mg/day based on episodes of overmedication. Patient tolerated the procedure well with no complications. Plan and Disposition:: We will follow-up with her in 1 week. We will reevaluate her symptoms and make further adjustments to her intrathecal infusion if needed.
== END 2020-07-16 14:37 | disposition home or self-care (01) ==
LOC: SC.PAINP 13:13
PROVIDERS: PCP Family Medicine; Visit Provider Anesthesiology
DX: M51.16 Intervertebral disc disorders with radiculopathy, lumbar region (principal); K21.9 Gastro-esophageal reflux disease without esophagitis; G43.909 Migraine, unspecified, not intractable, without status migrainosus; R56.9 Unspecified convulsions; I73.9 Peripheral vascular disease, unspecified; J45.909 Unspecified asthma, uncomplicated; F41.9 Anxiety disorder, unspecified; F32.9 Major depressive disorder, single episode, unspecified; Z86.73 Personal history of transient ischemic attack (TIA), and cerebral infarction without residual deficits; Z88.8 Allergy status to other drugs, medicaments and biological substances; Z88.2 Allergy status to sulfonamides; Z87.39 Personal history of other diseases of the musculoskeletal system and connective tissue
CPT/HCPCS: 61070; 75809; Q9966

== ENCOUNTER → 2020-08-14 13:00 | Outpatient (POV) | payer OTHER, SELFPAY ==
[2020-08-14 13:16] VITALS: BP 132/77; PULSE 74; RESP 18; TEMP 36.8; O2SAT 99; BMI 21.1
--- NOTE | 2020-08-18 14:38 | HMH.PMPROC ---
- Procedure Date: 08/14/20 Time: 14:39 Anesthesiologist:: Merced Julio APRN Complications:: None Pre-procedure Diagnosis:: Degenerative disc disease lumbar pain lumbar radiculopathy, degenerative disc disease cervical spine cervical radiculopathy Post-procedure Diagnosis:: Same Indications for Procedure:: Patient is a 70-year-old white female who presents today for follow-up after catheter dye study she was turned down due to the fact that she feels like she is overmedicated. Patient stated that she had stopped her diazepam back in March however she continued to fill it. She also states that she is now taking it again. Patient and I had a long discussion I do believe that it would be prudent to turn off her pain pump and have her pain pump removed. Patient is not getting adequate relief she rates her pain today an 8 out of 10. Even with her pain pump at a higher dose she still has the same amount of pain. Patient and I had a long discussion in regards to this. Patient and I discussed us referring her for medication management elsewhere. Patient and I discussed that we would not be medically managing her. Patient was seen by Dr. Michel in the past however she states she does not like him and wants to go to a different physician we have set her up in the past with Dr. Michel but she did not go to her appointment. Patient wants to be seen by but does not want to go to the main campus she would like to be seen by a satellite clinic I am unsure if this is possible. Patient and I discussed psychological care if she does not feel that she would benefit from cognitive behavioral therapy I do believe she would benefit from potential opioid reset with Dr. Edmond Welsh. Patient is uninterested. ROS General: no recent weight change, no fever, no sleep disturbances Respiratory: no cough, no shortness of air, no recurring pulmonary infections Cardiovascular/Peripheral Vascular: No chest pain, No palpitations, no edema, no shortness of breath. Gastrointestinal: no new onset incontinence, normal bowel movements reported Genitourinary: no new onset incontinence Musculoskeletal: [Back pain, neck pain, arm pain, leg pain] Psychiatric: normal mood/ affect, Neurological: [denies new onset weakness in extremities], [denies new onset balance issues] Procedure Details:: Informed consent was obtained and the risk and benefits of the procedure were explained to the patient. The patient was taken to the procedure room where noninvasive monitoring was placed including noninvasive blood pressure cuff and pulse oximeter. Patient's pump was interrogated and reprogrammed. The infusion rate was turned to 0.48 mg/day this is due to the fact that her concentration will not allow us to go any lower.. The patient tolerated the procedure well. Plan and Disposition:: After discussion with Dr. Yu he wants her to switch to minimal flow at her next visit. And then have the pump removed. Patient is asking about something to help her with her withdrawal I discussed with her that Valium the same medication she is taking now is what we would prescribe. She has been instructed to call the office if she has any issues. Dr. Yu has reviewed this note and agrees with this plan of care. This note was dictated using voice recognition software and may contain errors or omissions
== END ==
PROVIDERS: PCP Family Medicine; Visit Provider Clinical Nurse Specialist Family Health
DX: M51.16 Intervertebral disc disorders with radiculopathy, lumbar region (principal); M50.10 Cervical disc disorder with radiculopathy, unspecified cervical region
CPT/HCPCS: 62368

== ENCOUNTER → 2020-08-25 13:11 | Outpatient (POV) | payer OTHER, SELFPAY ==
--- NOTE | 2020-08-25 13:39 | P.PCN_ITS ---
- Procedure Date: 08/25/20 Time: 13:39 Anesthesiologist:: Merced Julio APRN Complications:: None Pre-procedure Diagnosis:: Degenerative disc disease lumbar spine with lumbar radiculopathy, degenerative disc disease cervical spine cervical radiculopathy Post-procedure Diagnosis:: same Indications for Procedure:: Patient is a 70-year-old white female who presents today for follow-up came back normal. Patient states she continues to feel overmedicated. Patient stated that she had stopped her diazepam back in March however she continued to fill it. She also states that she is now taking it again. Patient is continually having issues with her pain pump we discussed pain pump removal. She is agreeable. Patient states she has been to the emergency room several times for these times of overmedication. Patient has never gotten adequate relief she rates her pain today an 8 out of 10. Even with her pain pump at a higher dose she still has the same amount of pain. Patient and I discussed referring her for medication management elsewhere she would like to pursue this and see Dr. Mo. Patient and I discussed that we would not be medically managing her post removal of her intrathecal pain pump. Patient was supposed to be seen by Dr. Michel but she stated she did not go to Dr. Michel because she did not like Dr. Michel and she wants to go to but not the main [facility] satellite clinic. I am unsure if this is possible. I have discussed psychological care and I do believe she would benefit from opioid reset with Dr. Edmond Welsh but she is uninterested. I discussed with Dr. Nash his situation he wants her switch to minimal flow due to the overmedication. Patient does have Valium, gabapentin, Phenergan for any withdrawal symptomology. I did discuss this with her. Patient is on enoxaparin. We will see if she can come off prior to intrathecal pain pump removal. Procedure Details:: Informed consent was obtained and the risk and benefits of the procedure were explained to the patient. The patient was taken to the procedure room where noninvasive monitoring was placed including noninvasive blood pressure cuff and pulse oximeter. Patient's pump was interrogated and reprogrammed. The infusion rate was turned to minimal flow at 0.006 mg/day of Dilaudid. The patient tolerated the procedure well. Plan and Disposition:: Per Dr. Avina's instruction she has been turned to minimal flow she has an appointment for intrathecal pain pump removal on the of this month. We will set her up with Dr. Mo for medication management this is per patient request. She has been instructed to call the office if she has any issues. We will give her one more refill of gabapentin 600 mg one p.o. 3 times daily. If the patient does need for an agreement she is to call our office. Dr. Yu has reviewed this note and agrees with this plan of care. This note was dictated using voice recognition software and may contain errors or omissions
[2020-08-25 14:25] VITALS: BP 141/74; PULSE 68; RESP 18; TEMP 36.8; O2SAT 99; BMI 19.3
== END ==
PROVIDERS: PCP Family Medicine; Visit Provider Clinical Nurse Specialist Family Health
DX: M51.16 Intervertebral disc disorders with radiculopathy, lumbar region (principal); M50.10 Cervical disc disorder with radiculopathy, unspecified cervical region
CPT/HCPCS: 99212; G0463

== ENCOUNTER → 2020-09-02 16:23 | Outpatient (CLI) | payer OTHER, SELFPAY ==
[2020-09-02 17:40] LABS: Basophils # 0.1 K/mm3 (0-0.2); Basophils % 0.9 % (0.1-2.0); Eosinophils # 0.1 K/mm3 (0.0-0.4); Eosinophils % 1.8 % (0.1-12.0); Hematocrit 39.3 % (37.0-47.0); Hemoglobin 12.6 g/dL (12.2-16.2); Lymphocytes # 1.9 K/mm3 (0.7-4.5); Lymphocytes % 27.4 % (10-50); Mean Corpuscular HGB Conc 32.1 g/dL (31.8-35.4); Mean Corpuscular Hemoglobin 30.7 pg (27.0-31.2); Mean Corpuscular Volume 95.7 fl (81-99); Mean Platelet Volume 7.5 fl (7.4-10.4); Monocytes # 0.4 K/mm3 (0.1-1.0); Monocytes % 5.7 % (1.7-9.3); Neutrophils # 4.5 K/mm3 (1.8-7.8); Neutrophils % 64.3 % (37.0-80.0); Platelet Count 261 K/mm3 (142-424); Red Cell Distribution Width 12.9 % (11.5-17.5)
[2020-09-02 18:20] LABS: Anion Gap 14.4 mEq/L (5-15); Blood Urea Nitrogen 12 mg/dl (7-17); Calcium 10.2 mg/dl (8.4-10.2); Carbon Dioxide 31 mmol/L (22.0-30.0); Chloride 94 mmol/L (98-107); Estimated Glomerular Filt Rate 49 ml/min (>60); GFR (African American) 59 ML/MIN (>60); Glucose 112 mg/dl (74-100); Potassium 4.4 mmoL/L (3.5-5.1); Sodium 135 mmol/L (136-145)
[2020-09-02 18:31] LABS: Coronavirus 19 IgG Antibody Negative (Negative); Coronavirus 19 IgM Antibody Negative (Negative)
== END ==
PROVIDERS: Visit Provider Anesthesiology
DX: Z01.818 Encounter for other preprocedural examination (principal); Z20.822 Contact with and (suspected) exposure to COVID-19; Z45.1 Encounter for adjustment and management of infusion pump
CPT/HCPCS: 36415; 80048; 85025; 86328

== ENCOUNTER 2020-09-03 06:38 | Day surgery (SDC) | payer OTHER, SELFPAY ==
[2020-09-03] VITALS (16 sets, daily range): BP systolic 111–147; BP diastolic 52–86; PULSE 64–99; RESP 16–99; TEMP 36.1–37.2; O2SAT 96–100; BMI 21.6
--- NOTE | 2020-09-03 08:57 | HMH.ANESCL ---
[facility] Anesthesia Checklist - Patient Identification Patient Identification: Arm Band - Structural Data Admitted From: Home Planned Operative Procedure/s: general Consent for Planned Operative Procedure(s) Verified: Yes Verified Documents: Surgical Consent - Additional verifications Anesthesia Reactions: No Hx Blood Transfusions: No Blood Transfusion Reaction: No - Anesthesia Plan Anesthesia Risk discussed: Yes Anesthesia Plan: Verified ASA Class: III Anesthesia Type: General [facility] History Medical History: Reports:: Deep Vein Thrombosis, Hypertension, Peripheral Artery Disease (FEMORAL STENTS), Peripheral Vascular Disease, Seizures Denies:: Cancer, Diabetes Mellitus Type 1, Diabetes Mellitus Type 2, Internal Pacemaker, MRSA *Have you ever received a pneumonia vaccine?: No *Have you received a flu vaccine this season?: No Other Medical History: Reports: Arthritis, Fibromyalgia. Denies: Blood Transfusion Reaction Anesthesia experience/problems:: none Laterality Cases: Left: Arthroscopy Knee, Carpal Tunnel Release, Other Other Surgeries: Yes: Cholecystectomy, Other (RIGHT ULNAR NERVE RELEASE, NECK, PAIN PUMP). No: Pacemaker Amputation: No Fractures: Yes - *Social History Last grade of school completed: Advanced degree Smoking Status: Never smoker Alcohol Intake: never Substance Use Type: denies use *Occupational Status:: disabled Housing: house Household Members: spouse *Travel in the last 8 weeks: None Family Hx:: Cancer
--- NOTE | 2020-09-03 09:22 | P.PN_ITS ---
[facility] Anesthesia Record Part I Intake, IV Amount: 600 Estimated blood loss (mL): 5 Urine output (mL): 0 Blood Pressure: 140/60 SaO2: 99 Pulse Rate: 99 Respiratory Rate: 99 Temperature: 97 F Patient is:: Awake
--- NOTE | 2020-09-03 09:28 | P.OP_ITS ---
Date of procedure: 09/03/20 Pre-op Diagnosis:: Desires removal of pain pump generator Post-op Diagnosis:: Same Procedure performed:: Removal of pain pump generator Surgeon:: Yovanny Maxwell MD MACHINE OPERATOR PICKER:: George Sheikh, Rudi Mason, Jordy Sahu, Terence Keene, Darshana Anesthesia: LMA Estimated blood loss (mL): 2 Operative findings:: Not applicable Operative note:: Once adequate general anesthesia was obtained utilizing an LMA the patient's abdomen was prepped draped in sterile fashion. Incision made over the generator and carried out the skin and subcutaneous tissues. Generator was delivered without difficulty. Catheter was ligated with a 0 silk tie and the pump was removed. Area was irrigated with antibiotic solution. The subcutaneous tissues closed with 2-0 Vicryl. Skin closed arm stitches of 4-0 nylon. Sterile compression dressing applied after local anesthesia given. Patient Toller procedure well and was taken to recovery room in stable condition. Upon recovery the patient will be discharged home will follow-up in 2 weeks for suture removal. Antibiotics x1 week per protocol. The patient tolerated the procedure well Condition: stable Disposition: PACU Complications:: None
--- NOTE | 2020-09-09 09:11 | HMH.ANESII ---
[facility] Anesthesia Record Part II Discharge Time: 10:59 Destination: Surgical Day Care (OP Surgery) PACU nurse assessment reviewed?: Yes Patient Condition:: Good Anesthesia Complications:: None Swallowing reflex intact?: Yes Cyanosis?: No Blood Pressure: 125/66 Pulse Rate: 73 Temperature: 98.6 F Mental Status: Alert & Oriented Pain level:: 6 Nausea and/or vomitting:: None Intake, IV Amount: 0
[2020-09-09 09:12] VITALS: BP 125/66; PULSE 73; TEMP 37
== END 2020-09-03 11:33 | disposition home or self-care (01) ==
PROVIDERS: PCP Family Medicine; Visit Provider Surgery
PROC: (CPT 62365; principal; 2020-09-03 08:00)
DX: Z45.1 Encounter for adjustment and management of infusion pump (principal); M50.10 Cervical disc disorder with radiculopathy, unspecified cervical region; M54.81 Occipital neuralgia; M51.16 Intervertebral disc disorders with radiculopathy, lumbar region
CPT/HCPCS: 62365; 96374; J0131; J2405

== ENCOUNTER → 2020-09-11 08:55 | Outpatient (POV) | payer OTHER, SELFPAY ==
--- NOTE | 2020-09-11 10:25 | HMH.PAINSOAP ---
[facility] Pain Management SOAP Note Subjective:: Patient is a 70-year-old white female who presents today for follow-up after removal of an intrathecal pain pump. She is being treated for chronic low back with lumbar radicular symptoms. She contacted the clinic twice for complaints of all over burning sensation to her body. She is currently on gabapentin and was informed by the previous provider that she would no longer be prescribing her gabapentin and advised her to seek [facility] at [facility]. Patient does have an appointment at the clinic. She is here today asking for oral medications. She is asking for pain medication as well as an increase in her gabapentin or a refill on her gabapentin. When informed that we would not be able to prescribe her any type of pain medication, patient reports I do not want any medicine for pain . She does say, however, that gabapentin is not giving her any relief. No complaints of right lower quadrant abdominal pain to incision. Patient rates her pain an 8 out of 10 today. She says that she has been withdrawing from the intrathecal therapy. Review of Systems General: No recent weight changes, no fever, no sleep disturbances Respiratory: No cough, no shortness of air, no recurring pulmonary infections Cardiovascular/peripheral vascular: No chest pain, no palpitations, no edema, no shortness of breath Gastrointestinal: No new onset incontinence, normal bowel movements reported Genitourinary: No new onset incontinence Musculoskeletal: Incisional pain right lower quadrant, low back pain Psychiatric: Normal mood/affect Neurological: [Denies weakness in extremities], [denies balance issues] Objective:: Physical exam General: Alert and oriented x3, no acute distress, pleasant and cooperative, [on room air] Lungs: Respirations even and unlabored, symmetrical chest expansion Eyes: PERRL Musculoskeletal: Flexion and extension of lumbar spine somewhat guarded secondary to pain, deep tendon reflexes normal, strength in upper and lower extremities [5/5], [abnormal gait noted] Neurological: Speech clear, regional sales manager equal, no gross sensory deficit Assessment:: Degenerative disc disease lumbar spine with lumbar radiculopathy symptoms Plan:: Patient I had a long discussion concerning her medications. She understands we will not be giving her any further gabapentin. She is scheduled to see another provider in 1 month. I did discuss giving her Cymbalta for 1 month along with Lidoderm patches to see if this gives her any relief. We will give her Cymbalta 30 mg 1 tablet p.o. daily and a Lidoderm patch to apply topically to her incisional area. We will see her back in a week to reassess her symptoms. She was educated regarding the medications. Risks and benefits of the medication have been explained in detail to the patient. The patient has been advised to consult with his/her primary care provider and pharmacist regarding drug-drug interaction of medications currently prescribed. The patient and I specifically discussed risk factors for COVID19. These risks include, but are not limited to age greater than 60, heart or lung disease, diabetes, immunosuppression, and travel. We also discussed NSAIDs may worsen COVID19 infection or symptoms. Patient should not use NSAIDs to treat COVID19 signs or symptoms. Patient was also informed that any type of corticosteroid of any form (oral or injection) will decrease the patient's immune system response and may increase the likelihood of COVID19 infection and symptoms[address]. Yu has reviewed this note and agrees with this plan of care. This note was dictated using voice recognition software and make contain errors or omissions. [facility] History I have reviewed the patient's past medical history: Yes Medical History: Reports:: Deep Vein Thrombosis, Hypertension, Peripheral Artery Disease (FEMORAL STENTS), Peripheral Vascular Disease, Seizures Denies:: Cancer, Diabetes Shauna
[2020-09-11 12:31] VITALS: BP 133/71; PULSE 71; RESP 18; O2SAT 98; BMI 24.5
== END ==
PROVIDERS: Visit Provider Clinical Nurse Specialist Family Health
DX: M51.16 Intervertebral disc disorders with radiculopathy, lumbar region (principal)
CPT/HCPCS: 99212; G0463

== ENCOUNTER → 2020-09-25 10:33 | Outpatient (POV) | payer OTHER, SELFPAY ==
--- NOTE | 2020-09-25 11:31 | P.CONS_ITS ---
[facility] Pain Management SOAP Note Subjective:: Patient is a pleasant 70-year-old white female who presents today for follow-up. Patient had her intrathecal pain pump removed. At this time she is having increased pain and some withdrawal symptoms. She does have gabapentin and Valium at home for her symptomology. Patient does have an appointment with Dr. Jean in [place] for oral medication management. Overall patient is doing well. Stitches have been removed the site is well-healed with no sign symptoms of infection. ROS General: no recent weight change, no fever, no sleep disturbances Respiratory: no cough, no shortness of air, no recurring pulmonary infections Cardiovascular/Peripheral Vascular: No chest pain, No palpitations, no edema, no shortness of breath. Gastrointestinal: no new onset incontinence, normal bowel movements reported Genitourinary: no new onset incontinence Musculoskeletal: Generalized pain Psychiatric: normal mood/ affect Neurological: [denies new onset weakness in extremities], [denies new onset balance issues] Objective:: Physical Exam General: Alert and oriented x3, no acute distress, pleasant and cooperative, [on room air] Lungs: Resps E/U, Symmetrical chest expansion, Eyes: PERRL Musculoskeletal: Flexion and extension of lumbar spine somewhat guarded secondary to pain, deep tendon reflexes normal, strength in upper and lower extremities [5/5], [abnormal gait noted] Neurological: speech clear, student life dean equal, no gross sensory deficits Assessment:: Degenerative disc disease lumbar spine lumbar radiculopathy and status post removal of intrathecal pain pump Plan:: Patient will continue on her gabapentin and Valium from other providers. She is set up to see pain management at the end of this month. She is been instructed to call the office if she has any issues. Dr. Yu has reviewed this note and agrees with this plan of care. This note was dictated using voice recognition software and may contain errors or omissions [facility] History I have reviewed the patient's past medical history: Yes Medical History: Reports:: Deep Vein Thrombosis, Hypertension, Peripheral Artery Disease (FEMORAL STENTS), Peripheral Vascular Disease, Seizures Denies:: Cancer, Diabetes Mellitus Type 1, Diabetes Mellitus Type 2, Internal Pacemaker, MRSA *Have you ever received a pneumonia vaccine?: Yes *Have you received a flu vaccine this season?: Yes Other Medical History: Reports: Arthritis, Fibromyalgia. Denies: Blood Transfusion Reaction Laterality Cases: Left: Arthroscopy Knee, Carpal Tunnel Release, Other Other Surgeries: Yes: Cholecystectomy, Other (RIGHT ULNAR NERVE RELEASE, NECK, PAIN PUMP). No: Pacemaker Amputation: No Fractures: Yes - *Social History Smoking Status: Never smoker Alcohol Intake: never Substance Use Type: denies use *Occupational Status:: other Housing: house Household Members: spouse *Travel in the last 8 weeks: None Family Hx:: Cancer
[2020-09-25 12:07] VITALS: BP 135/74; PULSE 71; RESP 18; O2SAT 98; BMI 21.1
== END ==
PROVIDERS: Visit Provider Clinical Nurse Specialist Family Health
DX: M51.16 Intervertebral disc disorders with radiculopathy, lumbar region (principal); Z98.890 Other specified postprocedural states
CPT/HCPCS: 99212; G0463